=== PATIENT | female | born 1960 | race Caucasian/White ===

== ENCOUNTER 2018-06-05 14:18 | Emergency (ER) | payer MEDICAID, OTHER ==
[2018-06-05] MEDS: HYDROCODONE/APAP (10/325) TAB PO (18:35)
[2018-06-05] MEDS: KETOROLAC 60 MG INJ IM (18:36)
== END 2018-06-05 19:02 | disposition home or self-care (01) ==
LOC: FTE 14:18
DX: M25.561 Pain in right knee (principal); I10 Essential (primary) hypertension; E11.9 Type 2 diabetes mellitus without complications; M25.562 Pain in left knee; J45.909 Unspecified asthma, uncomplicated; Z79.84 Long term (current) use of oral hypoglycemic drugs
CPT/HCPCS: 96372; 99284-25